=== PATIENT | female | born 1995 | race Caucasian/White ===

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

== ENCOUNTER 2017-05-29 17:09 | Emergency (ER) | payer SELFPAY ==
[~2017-05-29] VITALS: Ht 157.5 cm; Wt 47.6 kg
[~2017-05-29 17:09] MED LIST changes: +AZIT500T3 PO; +FLUT9.9S NASAL; +PROM5SYR2 PO
[2017-05-29 17:27] VITALS: Ht 157.5 cm; Wt 47.6 kg
[2017-05-29] MEDS ORDERED: ACETAMINOPHEN 325 MG TAB PO ONE (19:30)
--- NOTE | 2017-05-29 19:35 | ERD ---
ER Documentation Chief Complaint Chief Complaint cough x 1 week; chills HPI This is a 21-year-old female presents today with a dry cough for the last week. Patient has had fevers and chills. She does admit to sore throat. She denies any ear pain. She denies any shortness of breath or chest pain. ROS \12 point review of systems was done, all negative except per HPI. Medications Home Meds Active Scripts Acetaminophen* (Tylophen*) 500 Mg Capsule, 500 MG PO Q6H Y for FEVER for 3 Days , TAB Prov:SPENCER HERRON 05/29/17 Azithromycin* (Zithromax*) 250 Mg Tablet, 250 MG PO .ZPACK DIRECTED, #6 TAB TAKE 500 MG (2 TABS) THE FIRST DAY THEN 250 MG (1 TAB) DAYS 2-5 Prov:SPENCER HERRON 05/29/17 Fluticasone Propionate (Flonase Allergy Relief) 9.9 Ml [place].susp, 1 SPRAY NASAL BID, #1 BOTTLE TO EACH NOSTRIL Prov:RJ BINGHAM 09/13/16 Promethazine HCl/Codeine (Prometh-Codein 6.25-10 mg/5 ml) 5 Ml Syrup, 5 ML PO Q4 for COUGH, #1 BOTTLE Prov:RJ BINGHAM 09/13/16 Azithromycin* (Zithromax*) 500 Mg Tablet, 500 MG PO DAILY for 3 Days, TAB Prov:RJ BINHGAM 09/13/16 Dextromethorphan Hb-Promethazine Hcl (Promethazine DM Syrup) 473 Ml Syrup, 5 ML PO Q6 Y for COUGH, #120 ML Prov:EARLE CORDOVA MD 08/12/16 Metronidazole* (Flagyl*) 500 Mg Tablet, 500 MG PO TID for 7 Days, TAB Prov:JOSE BOWEN PA-C 06/27/15 Allergies Allergies: Coded Allergies: No Known Allergy (Unverified , 11/07/14) PMhx/Soc Medical and Surgical Hx: pt denies Medical Hx, pt denies Surgical Hx History of Surgery: No Anesthesia Reaction: No Hx Neurological Disorder: No Hx Respiratory Disorders: No Hx Cardiac Disorders: No Hx Psychiatric Problems: No Hx Miscellaneous Medical Probl: No Hx Alcohol Use: No Hx Substance Use: No Hx Tobacco Use: No Smoking Status: Never smoker Physical Exam Vitals Vital Signs Date Time Temp Pulse Resp B/P Pulse Ox O2 Delivery O2 Flow Rate FiO2 05/29/17 17:27 101.1 109 20 119/58 96 Physical Exam GENERAL: The patient is well-developed, well-nourished, in no acute distress. NECK: Cervical spine is non tender with no step off. Supple, no nuchal rigidity HEENT: Atraumatic. Pupils equal, round and reactive to light. Extraocular muscles are grossly intact. Conjunctivae pink, no discharge. Bilateral tympanic membranes are clear with no evidence of erythema, effusion or dulling of the light reflex. Tonsilar erythema with no exudates or uvular deviation. Clear rhinorrhea. RESPIRATORY: Clear to auscultation bilaterally. There are no rales, wheezes or rhonchi. HEART: Regular rate and rhythm. No murmurs, clicks, rubs or gallops. EXTREMITIES: No clubbing or cyanosis. Full range of motion. Grossly neurovascularly intact. NEUROLOGIC: Alert and oriented. Cranial nerves II through XII are intact. SKIN: There is no rash. The skin is warm and dry. Results 24 hrs Current Medications Medications (Trade) Dose Ordered Sig/Olvin Route PRN Reason Start Time Stop Time Status Last Admin Dose Admin Acetaminophen (Tylenol Tab) 650 mg ONCE ONCE PO 05/29/17 19:30 05/29/17 19:31 DC 05/29/17 19:22 [place] [address] Radiology Main Line: [phone] DIAGNOSTIC IMAGING REPORT Patient: JOSE ELIAS GALEAS : 1995 Age: 21 Sex: F MR #: [id number] DOS: 05/29/17 0000 Ordering MD: SPENCER HERRON PA-C Location: [facility] Room/Bed: PROCEDURE: XR Chest PA CLINICAL INDICATION: Cough TECHNIQUE: An PA radiograph of the chest was submitted. COMPARISON: 09/12/2016 FINDINGS: Cardiovascular: The cardiovascular silhouette appears unremarkable. Lung Snowden: The lung snowden appear clear with no nodule, alveolar infiltrate, or interstitial prominence evident. Pleural Spaces: There is no pneumothorax or pleural fluid accumulation evident. Osseous Structures: The osseous structures appear intact. Soft Tissues: Hair artifact projects to the chest. IMPRESSION: Stable and unremarkable PA chest. Physician Rian Date Time Electronically viewed and signed by Mel Carmona Physician on 05/29/2017 19:40 RH/ CC: SPENCER HERRON Procedures/MDM Differential diagnosis includes but is not limited to; Viral URI, allergic rhinitis, bronchitis, pertussis,pneumonia. She will be treated for possible bacterial bronchitis as she is febrile and has had symptoms since last week. Patient is on appear to be getting better. Patient will be sent home with azithromycin. She is not hypoxic or in any respiratory patient is to follow-up with her primary care doctor within 1-2 days return to ER sooner if symptoms worsen. My medical decision making sure with the patient she understands and agrees with plan. Departure Diagnosis: Primary Impression: Bronchitis Condition: Stable SPENCER HERRON May 29, 2017 19:35
--- NOTE | 2017-05-29 19:35 | ERD ---
ER Documentation Chief Complaint Chief Complaint cough x 1 week; chills HPI This is a 21-year-old female presents today with a dry cough for the last week. Patient has had fevers and chills. She does admit to sore throat. She denies any ear pain. She denies any shortness of breath or chest pain. ROS \12 point review of systems was done, all negative except per HPI. Medications Home Meds Active Scripts Acetaminophen* (Tylophen*) 500 Mg Capsule, 500 MG PO Q6H Y for FEVER for 3 Days , TAB Prov:SPENCER HERRON 05/29/17 Azithromycin* (Zithromax*) 250 Mg Tablet, 250 MG PO .ZPACK DIRECTED, #6 TAB TAKE 500 MG (2 TABS) THE FIRST DAY THEN 250 MG (1 TAB) DAYS 2-5 Prov:SPENCER HERRON 05/29/17 Fluticasone Propionate (Flonase Allergy Relief) 9.9 Ml [place].susp, 1 SPRAY NASAL BID, #1 BOTTLE TO EACH NOSTRIL Prov:RJ BINGHAM 09/13/16 Promethazine HCl/Codeine (Prometh-Codein 6.25-10 mg/5 ml) 5 Ml Syrup, 5 ML PO Q4 for COUGH, #1 BOTTLE Prov:JR BINGHAM 09/13/16 Azithromycin* (Zithromax*) 500 Mg Tablet, 500 MG PO DAILY for 3 Days, TAB Prov:RJ BINGHAM 09/13/16 Dextromethorphan Hb-Promethazine Hcl (Promethazine DM Syrup) 473 Ml Syrup, 5 ML PO Q6 Y for COUGH, #120 ML Prov:EARLE CORDOVA MD 08/12/16 Metronidazole* (Flagyl*) 500 Mg Tablet, 500 MG PO TID for 7 Days, TAB Prov:JOSE BOWEN PA-C 06/27/15 Allergies Allergies: Coded Allergies: No Known Allergy (Unverified , 11/07/14) PMhx/Soc Medical and Surgical Hx: pt denies Medical Hx, pt denies Surgical Hx History of Surgery: No Anesthesia Reaction: No Hx Neurological Disorder: No Hx Respiratory Disorders: No Hx Cardiac Disorders: No Hx Psychiatric Problems: No Hx Miscellaneous Medical Probl: No Hx Alcohol Use: No Hx Substance Use: No Hx Tobacco Use: No Smoking Status: Never smoker Physical Exam Vitals Vital Signs Date Time Temp Pulse Resp B/P Pulse Ox O2 Delivery O2 Flow Rate FiO2 05/29/17 17:27 101.1 109 20 119/58 96 Physical Exam GENERAL: The patient is well-developed, well-nourished, in no acute distress. NECK: Cervical spine is non tender with no step off. Supple, no nuchal rigidity HEENT: Atraumatic. Pupils equal, round and reactive to light. Extraocular muscles are grossly intact. Conjunctivae pink, no discharge. Bilateral tympanic membranes are clear with no evidence of erythema, effusion or dulling of the light reflex. Tonsilar erythema with no exudates or uvular deviation. Clear rhinorrhea. RESPIRATORY: Clear to auscultation bilaterally. There are no rales, wheezes or rhonchi. HEART: Regular rate and rhythm. No murmurs, clicks, rubs or gallops. EXTREMITIES: No clubbing or cyanosis. Full range of motion. Grossly neurovascularly intact. NEUROLOGIC: Alert and oriented. Cranial nerves II through XII are intact. SKIN: There is no rash. The skin is warm and dry. Results 24 hrs Current Medications Medications (Trade) Dose Ordered Sig/Olvin Route PRN Reason Start Time Stop Time Status Last Admin Dose Admin Acetaminophen (Tylenol Tab) 650 mg ONCE ONCE PO 05/29/17 19:30 05/29/17 19:31 DC 05/29/17 19:22 [place] [address] Radiology Main Line: [phone] DIAGNOSTIC IMAGING REPORT Patient: JOSE ELIAS GALEAS : 1995 Age: 21 Sex: F MR #: [id number] DOS: 05/29/17 0000 Ordering MD: SPENCER HERRON PA-C Location: [facility] Room/Bed: PROCEDURE: XR Chest PA CLINICAL INDICATION: Cough TECHNIQUE: An PA radiograph of the chest was submitted. COMPARISON: 09/12/2016 FINDINGS: Cardiovascular: The cardiovascular silhouette appears unremarkable. Lung Snowden: The lung snowden appear clear with no nodule, alveolar infiltrate, or interstitial prominence evident. Pleural Spaces: There is no pneumothorax or pleural fluid accumulation evident. Osseous Structures: The osseous structures appear intact. Soft Tissues: Hair artifact projects to the chest. IMPRESSION: Stable and unremarkable PA chest. Physician Rian Date Time Electronically viewed and signed by Mel Carmona Physician on 05/29/2017 19:40 RH/ CC: SPENCER HERRON Procedures/MDM Differential diagnosis includes but is not limited to; Viral URI, allergic rhinitis, bronchitis, pertussis,pneumonia. She will be treated for possible bacterial bronchitis as she is febrile and has had symptoms since last week. Patient is on appear to be getting better. Patient will be sent home with azithromycin. She is not hypoxic or in any respiratory patient is to follow-up with her primary care doctor within 1-2 days return to ER sooner if symptoms worsen. My medical decision making sure with the patient she understands and agrees with plan. Departure Diagnosis: Primary Impression: Bronchitis Condition: Stable SPENCER HERRON May 29, 2017 19:35
--- NOTE | 2017-05-29 19:40 | RADRPT ---
PROCEDURE: XR Chest PA CLINICAL INDICATION: Cough TECHNIQUE: An PA radiograph of the chest was submitted. COMPARISON: 09/12/2016 FINDINGS: Cardiovascular: The cardiovascular silhouette appears unremarkable. Lung Cramer: The lung cramer appear clear with no nodule, alveolar infiltrate, or interstitial promi nence evident. Pleural Spaces: There is no pneumothorax or pleural fluid accumulation evident. Osseous Structures: The osseous structures appear intact. Soft Tissues: Hair artifact projects to the chest. IMPRESSION: Stable and unremarkable PA chest. Physician Rian Date Time Electronically viewed and signed by Mel Carmona Physician on 05/29/2017 19:40 RH/
[2017-05-29] MEDS ORDERED: AZIT250T94 PO (19:44)
[2017-05-29] MEDS ORDERED: ACET500C5 PO (19:47)
== END 2017-05-29 20:08 | disposition home or self-care (01) ==
LOC: FTE 17:09
DX: J20.9 Acute bronchitis, unspecified (principal)
CPT/HCPCS: 71010